=== PATIENT | female | born 2000 | race Caucasian/White ===

== ENCOUNTER 2022-07-17 08:25 | Day surgery (SDC) | payer OTHER ==
[~2022-07-17 08:25] MED LIST: SODIUM CHLORIDE 0.9% 1,000 ML IV SCH
[2022-07-17 08:53] VITALS: BP 127/76; PULSE 90; RESP 18; TEMP 98.7
--- NOTE | 2022-07-18 09:02 | P.EPPROC ---
- EP Procedure Note Electrophysiology Procedure Note: Diagnosis Recurrent syncope Twelve-lead EKG shows sinus mechanism normal NE incomplete right bundle branch block pattern normal ST segments Normal QT interval Tilt table test per protocol Baseline blood pressure 129/72 mmHg Baseline heart rate 70 beats a minute Patient was tilted upright at an angle of 70 per protocol Immediate increase in heart rate 214 beats a minute, sinus tachycardia Heart rates remained between 110 and 136 beats a minute No change in blood pressure Patient complained of being a little clammy No syncope When she was laid supine heart rate decreased to 90 beats a minute Impression Normal twelve-lead EKG Orthostatic intolerance/postural tachycardia
== END 2022-07-17 10:55 | disposition home or self-care (01) ==
LOC: CATHEP 08:25 → EDSEX 11:45
PROVIDERS: ATTEND Internal Medicine Clinical Cardiac Electrophysiology
DX: I45.10 Unspecified right bundle-branch block (principal); G43.909 Migraine, unspecified, not intractable, without status migrainosus; F41.1 Generalized anxiety disorder; E61.1 Iron deficiency; Z79.83 Long term (current) use of bisphosphonates; Z79.899 Other long term (current) drug therapy; Z79.1 Long term (current) use of non-steroidal anti-inflammatories (NSAID); Z79.82 Long term (current) use of aspirin; Z79.3 Long term (current) use of hormonal contraceptives; K21.9 Gastro-esophageal reflux disease without esophagitis
CPT/HCPCS: 81025; 93660